=== PATIENT | male | born 1990 | race American Indian/Alaskan Native ===

== ENCOUNTER 2016-12-16 23:29 | Emergency (ER) | payer OTHER ==
[2016-12-17] MEDS ORDERED: TYLENOL PO ONE (00:48)
[2016-12-17] MEDS ORDERED: FLEXERIL PO ONE (06:14)
[2016-12-17] MEDS ORDERED: NORCO 5/325 PO ONE (06:14)
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
[2016-12-17 06:42] VITALS: BP 119/72
== END 2016-12-17 06:44 | disposition home or self-care (01) ==
LOC: ED 23:29
DX: M62.830 Muscle spasm of back (principal); M54.5 Low back pain; F17.200 Nicotine dependence, unspecified, uncomplicated; V79.60XA Unspecified bus occupant injured in collision with unspecified motor vehicles in traffic accident, initial encounter; Y93.9 Activity, unspecified; Y92.9 Unspecified place or not applicable; Y99.9 Unspecified external cause status
CPT/HCPCS: 99282

== ENCOUNTER 2017-11-06 22:52 | Emergency (ER) | payer SELFPAY ==
[2017-11-06 23:53] VITALS: BP 110/68
--- NOTE | 2017-11-07 00:23 | XRay Report ---
FINAL REPORT EXAM: XR FINGER(S) 2+V RT HISTORY: hurt finger playing basketball swollen and painful RT THUMB PAIN TECHNIQUE: Three views of the right thumb were submitted. FINDINGS: There is no evidence of fracture or dislocation. The soft tissues are unremarkable. IMPRESSION: Within normal limits.
[2017-11-07] MEDS ORDERED: MOTRIN PO ONE (01:51)
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
== END 2017-11-07 02:10 | disposition home or self-care (01) ==
LOC: ED 22:52
DX: S63.601A Unspecified sprain of right thumb, initial encounter (principal); F17.200 Nicotine dependence, unspecified, uncomplicated; F12.10 Cannabis abuse, uncomplicated; X58.XXXA Exposure to other specified factors, initial encounter; Y93.67 Activity, basketball; Y92.89 Other specified places as the place of occurrence of the external cause; Y99.8 Other external cause status
CPT/HCPCS: 99283

== ENCOUNTER 2021-02-24 15:59 | Emergency (ER) | payer SELFPAY ==
[2021-02-24 17:52] VITALS: BP 127/58
--- NOTE | 2021-02-26 09:45 | Electrocardiograph Report ---
[facility] Test Date: 2021-02-24 Test Time: 18:00:39 Pat Name: NANETTE BENAVIDES Department: Room: Gender: M Health Sciences Manager: : 1990 Requested By: MEHNAZ VALENTINE Order Number: [id number] Reading MD: Sharan Chery Measurements Intervals [place] Rate: 62 P: 39 [place]: 175 QRS: 63 QRSD: 87 T: 28 QT: 389 QTc: 394 Interpretive Statements Sinus rhythm ST elev, probable normal early repol pattern No previous ECG available for comparison Electronically Signed On 02-26-2021 9:45:22 EDT by Sharan Chery
== END 2021-02-24 20:26 | disposition left against medical advice (07) ==
LOC: ED 15:59
DX: R07.9 Chest pain, unspecified (principal); Z53.21 Procedure and treatment not carried out due to patient leaving prior to being seen by health care provider
CPT/HCPCS: 93005